=== PATIENT | male | born 1955 | race Caucasian/White ===

== ENCOUNTER → 2016-09-24 10:00 | Day surgery (SDC) | payer BC ==
[2016-09-24 11:22] LABS: CSF Glucose 57 mg/dL (40-70)
[2016-09-24 11:44] LABS: BF RBC Count #1 3; BF RBC Count #2 3; BF WBC Count #1 1; BF WBC Count #2 1; Body Fluid Appearance Clear; Body Fluid WBC 1 /mcL; WBC counts within 15%? Yes
[2016-09-24 11:45] LABS: Body Fluid Total Cells Counted 21; RBC counts within 6%? Yes
== END | disposition home or self-care (01) ==
LOC: OR 10:00
PROVIDERS: ATTEND Anesthesiology
DX: G61.0 Guillain-Barre syndrome (principal)
CPT/HCPCS: 36415; 62270; 82945; 84157; 86592; 87070; 87205; 88112; 89051